=== PATIENT | male | born 1960 | race American Indian/Alaskan Native ===

== ENCOUNTER 2019-04-27 08:44 | Emergency (ER) | payer SELFPAY ==
[2019-04-27 09:21] LABS: Basophils % (Auto) 0.6 % (0.0-1.8); Eosinophils # (Auto) 0.1 K/mm3 (0.0-0.4); Eosinophils % (Auto) 1.2 % (0.0-4.3); Hematocrit 40.6 % (35.5-45.6); Lymphocytes # (Auto) 1.7 K/mm3 (1.2-5.4); Lymphocytes % (Auto) 37.2 % (13.4-35.0); Mean Corpuscular HGB Conc 34 % (32-34); Mean Corpuscular Volume 88 fl (84-94); Monocytes # (Auto) 0.2 K/mm3 (0.0-0.8); Monocytes % (Auto) 4.1 % (0.0-7.3); Platelet Count 271 K/mm3 (140-440); Red Blood Count 4.61 M/mm3 (3.65-5.03); Red Cell Distribution Width 15.2 % (13.2-15.2)
--- NOTE | 2019-04-27 09:24 | XRay Report ---
CHEST 1 VIEW 04/27/2019 9:00 AM INDICATION / CLINICAL INFORMATION: Chest pain for one day. COMPARISON: None available. FINDINGS: SUPPORT DEVICES: None. HEART / MEDIASTINUM: No significant abnormality. LUNGS / PLEURA: No significant pulmonary or pleural abnormality. No pneumothorax. ADDITIONAL FINDINGS: No significant additional findings. IMPRESSION: No acute abnormality of the chest. Signer Name: Jaquan Mistry MD Signed: 04/27/2019 9:20 AM Workstation Name: [id number]
[2019-04-27 09:29] LABS: BUN/Creatinine Ratio 15; Blood Urea Nitrogen 16 mg/dL (9-20); Calcium 9.6 mg/dL (8.4-10.2); Hemolysis Index 2
--- NOTE | 2019-04-27 09:29 | Emergency Department Report ---
ED General Adult HPI - General Chief complaint: Dizziness Stated complaint: DIZZY/BODY PAIN Source: patient Mode of arrival: Ambulatory Limitations: No Limitations - History of Present Illness Initial comments: 58 yo -[place] male presents with, headache, dizziness and chest discomfort that has worsened over the past 2 days. He also states that he had a dry cough along with adominal pain a week ago that somewhat improved. Patient states that he arrived to ER by cab. -: Gradual Location: head, abdomen Radiation: non-radiation Severity scale (0 -10): 10 Quality: aching Consistency: constant Improves with: none Worsens with: none Associated Symptoms: denies other symptoms Treatments Prior to Arrival: NSAID (BC powder) - Related Data Previous Rx's Medication Instructions Recorded Last Taken Type Aspirin EC [Halfprin EC] 81 mg PO QDAY #100 tablet. 04/27/19 Unknown Rx Butalb/Acetaminophen/Caffeine 1 cap PO Q6HR PRN #20 cap 04/27/19 Unknown Rx [Fioricet 50-300-40 mg CAP] Meclizine [Antivert] 12.5 mg PO BID PRN #30 tablet 04/27/19 Unknown Rx Allergies Allergy/AdvReac Type Severity Reaction Status Date / Time No Known Allergies Allergy Unverified 04/27/19 08:46 ED Review of Systems ROS: Stated complaint: DIZZY/BODY PAIN Other details as noted in HPI Comment: All other systems reviewed and negative Constitutional: see HPI Eyes: eye pain ENT: denies: ear pain, throat pain Respiratory: denies: cough, shortness of breath, wheezing Cardiovascular: denies: chest pain, palpitations Endocrine: no symptoms reported Gastrointestinal: denies: abdominal pain, nausea, diarrhea Genitourinary: denies: urgency, dysuria Musculoskeletal: denies: back pain, joint swelling, arthralgia Skin: denies: rash, lesions Neurological: denies: headache, weakness, paresthesias Psychiatric: denies: anxiety, depression Hematological/Lymphatic: denies: easy bleeding, easy bruising ED Past Medical Hx - Past Medical History Previous Medical History?: No - Surgical History Past Surgical History?: No - Social History Smoking Status: Never Smoker Substance Use Type: None - Medications Home Medications: Home Medications Medication Instructions Recorded Confirmed Last Taken Type Aspirin EC [Halfprin EC] 81 mg PO QDAY #100 tablet. 04/27/19 Unknown Rx Butalb/Acetaminophen/Caffeine 1 cap PO Q6HR PRN #20 cap 04/27/19 Unknown Rx [Fioricet 50-300-40 mg CAP] Meclizine [Antivert] 12.5 mg PO BID PRN #30 tablet 04/27/19 Unknown Rx ED Physical Exam - General Limitations: No Limitations General appearance: alert, other (appears ill) - Head Head exam: Present: atraumatic, normocephalic - Eye Eye exam: Present: EOMI (painflul lateral gaze) - ENT ENT exam: Present: mucous membranes moist - Neck Neck exam: Present: normal inspection, full ROM. Absent: tenderness, lymphadenopathy - Respiratory Respiratory exam: Present: normal lung sounds bilaterally. Absent: respiratory distress - Cardiovascular Cardiovascular Exam: Present: regular rate, normal rhythm. Absent: systolic mur mur, diastolic murmur, rubs, gallop - GI/Abdominal GI/Abdominal exam: Present: tenderness (epigastric tenderness) - Rectal Rectal exam: Present: deferred - Extremities Exam Extremities exam: Present: normal inspection - Back Exam Back exam: Present: normal inspection - Neurological Exam Neurological exam: Present: alert, oriented X3, other (R side facial decreased sensation, dizziness increaased with movement ) - Expanded Neurological Exam Expanded Patient oriented to: Present: place (Pt is unaware that he is at [facility]) Speech: Present: fluid speech Cranial nerves: EOM's Intact: Abnormal Right, Abnormal Left (painful ) Cerebellar function: Finger to Nose: Abnormal Right, Abnormal Left Upper motor neuron: Pronator Drift: Abnormal Right, Abnormal Left Best Eye Response (Shilpa): (4) open spontaneously Best Motor Response (Shilpa): (6) obeys commands Best Verbal Response ([place]): (5) oriented [place] Total: 15 - Psychiatric Psychiatric exam: Present: normal affect, normal mood - Skin Skin exam: Present: warm, dry, intact, normal color. Absent: rash ED Course Vital Signs 04/27/19 04/27/19 08:51 13:36 Temperature 97.5 F L 97.5 F L Pulse Rate 86 75 Respiratory 16 18 Rate Blood Pressure 140/91 Blood Pressure 134/85 [Right] O2 Sat by Pulse 98 100 Oximetry ED Medical Decision Making - Lab Data Result diagrams: 04/27/19 08:59 04/27/19 08:59 - EKG Data Interpretation: other (sinus rhythm, Probable Left atrial enlargement) - Medical Decision Making 58 yo -[place] male presents with, headache, dizziness and chest discomfort that has worsened over the past 2 days. He also states that he had a dry cough along with adominal pain a week ago that somewhat improved. Patient states that he arrived to ER by cab. Labs were obtained in addition noncontrast CT, EKG and chest x-ray. CT revealed abnormal findings telemedicine neurology was consulted. CT report listed below and chest xray was WNL; CXR results may be found in the chart. Patient was started on morphine and IV fluids. Due to the symptoms occuring for over 2 days, the patient is not a candidate for TPA. Pt was consulted due to stroke like symptoms by Dr. Mcmullen. Dr. Mcmullen discharged pt and stated that his exam yielded a diagnosis of a severe MITCHELL and not a stroke. Patient: MOLLY ARCHER MR#: The results [id number] : 1960 Acct:[id number] Age/Sex: 58 / M ADM Date: 04/27/19 Loc: ED Attending Dr: Ordering Physician: HAN LANZA PA-C Date of Service: 04/27/19 Procedure(s): CT head/brain wo con Accession Number(s): [id number] cc: HAN LANZA PA-C CT head without contrast. Clinical history: Headache, dizziness for 2 days. FINDINGS: No previous exams are available for comparison. There is mild cerebral white matter disease most consistent with microvascular angiopathy. There is more notable a focus of decreased attenuation along the occipital horn of the left lateral ventricle which also appears to represent small vessel ischemic changes of indeterminate age within this region and correlation would be needed. The ventricular system is within normal limits in size and configuration. There is no CT evidence of acute intracranial hemorrhage or significant mass effect. The visualized paranasal sinuses are clear. All CT scans at this location are performed using the CT dose reduction for Recorded Future by means of automated exposure control. IMPRESSION: There is microvascular angiopathy as detailed above with a decrease attenuation adjacent to the left occipital horn which is of indeterminate age. There is no CT evidence of acute intracranial hemorrhage. Signer Name: Usama Choi MD Signed: 04/27/2019 9:42 AM Workstation Name: [id number] Transcribed By: MR Dictated By: Usama Choi MD Electronically Authenticated By: Usama Choi MD Signed Date/Time: 04/27/19 9467 Critical care attestation.: If time is entered above; I have spent that time in minutes in the direct care of this critically ill patient, excluding procedure time. ED Disposition Clinical Impression: CVA (cerebral vascular accident), Headache, Right facial numbness Disposition: DC-01 TO HOME OR SELFCARE Is pt being admited?: No Does the pt Need Aspirin: No Condition: Fair Time of Disposition: 18:58
--- NOTE | 2019-04-27 09:47 | Cat Scan Report ---
CT head without contrast. Clinical history: Headache, dizziness for 2 days. FINDINGS: No previous exams are available for comparison. There is mild cerebral white matter disease most consistent with microvascular angiopathy. There is more notable a focus of decreased attenuatio n along the occipital horn of the left lateral ventricle which also appears to represent small vessel ischemic changes of indeterminate age within this region and correlation would be needed. The ventricular system is within normal limits in size and configuration. There is no CT evidence of acute intracranial hemorrhage or significant mass effect. The visualized paranasal sinuses are clear. All CT scans at this location are performed using the CT dose reduction for ALARA by means of automa lavon exposure control. IMPRESSION: There is microvascular angiopathy as detailed above with a decrease attenuation adjacent to the left occipital horn which is of indeterminate age. There is no CT evidence of acute intracranial hemorrhage. Signer Name: Usama Choi MD Signed: 04/27/2019 9:42 AM Workstation Name: [id number]
[2019-04-27] MEDS: NACL 0.9% 1000 ML 1,000 ML IV ONE (11:34)
[2019-04-27] MEDS: MORPHINE IV ONE (11:34)
[2019-04-27] MEDS: ASPIRIN PO ONE (12:27)
--- NOTE | 2019-04-27 15:11 | Event Note ---
Date: 04/27/19 Comes in for l sided H/A and Dizziness for 2 days No focal deficits Able to walk normally 5/5 power in all [address] head There is mild cerebral white matter disease most consistent with microvascular angiopathy. There is more notable a focus of decreased attenuation along the occipital horn of the left lateral ventricle which also appears to represent small vessel ischemic changes of indeterminate age within this region and correlation would be needed. The ventricular system is within normal limits in size and configuration. There is no CT evidence of acute intracranial hemorrhage or significant mass effect. The visualized paranasal sinuses are clear. All CT scans at this location are performed using the CT dose reduction for Digital Message Display by means of automated exposure control. IMPRESSION: There is microvascular angiopathy as detailed above with a decrease attenuation adjacent to the left occipital horn which is of indeterminate age. There is no CT evidence of acute intracranial hemorrhage. Diff Diagnosis Acute Labrynthitis [id number] Headache F/u with PCp F/u Dr Koo Neurology Baby ASA 81 mg po qd Meclizine 12.5 bid Fioricet i tab bid prn for Headache
[2019-04-27] MEDS: ZOFRAN IV PRN (15:32)
[2019-04-27] MEDS: DILAUDID IV PRN (15:32)
[2019-04-27 17:08] VITALS: BP 134/64
== END 2019-04-27 17:08 | disposition home or self-care (01) ==
LOC: ED 08:44 → 4A 12:34 → UNDOADMIN 12:34
DX: I63.9 Cerebral infarction, unspecified (principal); R51 Headache; R20.0 Anesthesia of skin; Z79.82 Long term (current) use of aspirin; Z79.899 Other long term (current) drug therapy
CPT/HCPCS: 36415; 70450; 71045; 80048; 84484; 85025; 93005; 93010; 96361; 96374; 96375; 99285; J1170; J2270; J2405; J7030